=== PATIENT | male | born 1975 | race Caucasian/White ===

== ENCOUNTER 2017-11-12 23:52 | Emergency (ER) | payer OTHER ==
[2017-11-13 00:05] VITALS: BP 145/85
[2017-11-13] MEDS ORDERED: IBUPROFEN 800 MG TAB PO ONE (00:42)
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
== END 2017-11-13 01:45 | disposition home or self-care (01) ==
DX: S00.93XA Contusion of unspecified part of head, initial encounter (principal); Y04.0XXA Assault by unarmed brawl or fight, initial encounter; Y92.149 Unspecified place in prison as the place of occurrence of the external cause